=== PATIENT | male | born 1980 | race Caucasian/White ===

== ENCOUNTER → 2022-09-07 | Outpatient (CLI) | payer BC ==
--- NOTE | 2022-09-07 11:39 | XR ---
Left ankle HISTORY: Pain. COMPARISON: None. TECHNIQUE: 3 views left ankle were obtained. FINDINGS: There is no fracture, dislocation, intraosseous or intra-articular abnormality. There is no radiopaqu e foreign body or abnormal soft tissue calcification. The ankle mortise is intact. IMPRESSION: No significant abnormality seen.
--- NOTE | 2022-09-07 11:53 | XR ---
Left foot. HISTORY: Pain COMPARISON: None. TECHNIQUE: 3 views left foot were obtained. FINDINGS: There is no fracture, dislocation, intraosseous or intra-articular abnormality. There is no radiopaqu e foreign body or abnormal soft tissue calcification. IMPRESSION: No significant abnormality seen.
[2022-09-07 16:11] LABS: Basophils # (A) 0.05 X 10*3/uL (0.00-0.10); Basophils % (A) 1.1 %; Eosinophils # (A) 0.08 X 10*3/uL (0.04-0.35); Eosinophils % (A) 1.8 %; HCT 45.8 % (39.6-50.0); HGB 15.2 g/dL (13.0-17.0); Immature Grans, Automated 0.2 %; Lymphocytes # (A) 1.06 X 10*3/uL (0.90-5.00); Lymphocytes % (A) 24.1 %; MCH 31.5 pg (27.0-32.0); MCHC 33.2 g/dL (32.0-37.0); Mean Platelet Volume 10.9 fL (9.5-12.2); Monocytes # (A) 0.41 X 10*3/uL (0.20-1.00); Monocytes % (A) 9.3 %; NRBC Per 100 WBC 0 /100 WBCS (0.0-0.0); Neutrophils # (A) 2.79 X 10*3/uL (1.80-7.70); Neutrophils % (A) 63.5 %; Platelet Count 236 X 10*3/uL (140-440); RBC 4.82 X 10*6/uL (4.40-5.60); RDW 12.2 % (11.5-14.5)
[2022-09-07 16:30] LABS: ALT 28 U/L (10-49); AST 21 U/L (14-35); African American GFR (CKD) 119.2 (60.0-200.0); Albumin 4.7 g/dL (3.8-4.9); Albumin/Globulin Ratio 2.14 (1.60-3.17); Alkaline Phosphatase 101 U/L (41-126); BUN/Creat Ratio 13.61 Ratio (12.00-20.00); Blood Urea Nitrogen 12.6 mg/dL (9.0-27.0); Calcium 9.4 mg/dL (8.7-10.3); Carbon Dioxide 23.1 mmol/L (20.0-27.5); Chloride 105 mmol/L (96-109); Chol/HDL Ratio 4.99 Ratio; Globulin 2.2 g/dL (1.6-3.3); Glucose 86 mg/dL (70-110); LDL Cholesterol,Calculated 177.9 mg/dL (0.0-131.0); Non-African American GFR(CKD) 102.9 (60.0-200.0); Potassium 4.3 mmol/L (3.5-5.5); Sodium 141 mmol/L (135-145); Total Protein 6.9 g/dL (6.2-8.2)
== END | disposition home or self-care (01) ==
LOC: LABWHC1 10:06
PROVIDERS: ATTEND Internal Medicine
DX: Z00.01 Encounter for general adult medical examination with abnormal findings (principal); Z13.220 Encounter for screening for lipoid disorders; Z13.228 Encounter for screening for other metabolic disorders; M25.572 Pain in left ankle and joints of left foot
CPT/HCPCS: 36415; 80053; 80061; 85025

== ENCOUNTER → 2024-02-25 | Outpatient (CLI) | payer BC ==
--- NOTE | 2024-02-25 16:08 | XR ---
EXAMINATION TYPE: XR shoulder complete RT DATE OF EXAM: 02/25/2024 4:03 PM CLINICAL INDICATION:Male, 43 years old with history of [id number] RT SHLD PAIN; [facility] COMPARISON: None TECHNIQUE: XR shoulder complete RT; examined in AP, internally rotated and scapular Y projections. FINDINGS: No evidence of acute osseous pathology, joint dislocation, or soft tissue swelling. The remaining po rtions of the visualized chest are unremarkable. Mild degeneration changes of the acromion and dista l clavicle. IMPRESSION: 1. No acute osseous pathology. 2. 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
== END | disposition home or self-care (01) ==
LOC: RADXRYALE 15:52
PROVIDERS: ATTEND Internal Medicine
DX: M19.011 Primary osteoarthritis, right shoulder (principal)